=== PATIENT | female | born 1980 | race Caucasian/White ===

== ENCOUNTER → 2016-10-07 | Outpatient (CLI) | payer BC ==
[~2016-10-07] MED LIST: CALC500C3 PO; PRENTAB26 PO
--- NOTE | 2016-10-07 15:29 | MAMMOGRAPHY REPORT ---
BILATERAL DIGITAL DIAGNOSTIC MAMMOGRAM TOMOSYNTHESIS WITH CAD AND TARGETED LEFT ULTRASOUND: 7 CLINICAL HISTORY: 36-year-old woman who reports a lump in the 5:00 to 6:00 left breast that she noti rich one year ago but feels as though is it is increasing in size. No skin erythema, focal pain or n ipple discharge. Family history of breast cancer = great aunt in her 50s. TECHNIQUE: Bilateral breast tomosynthesis in addition to standard 2D mammography was performed. Curr ent study was also evaluated with a Computer Aided Detection (CAD) system. COMPARISON: No prior exams were available for comparison. BREAST COMPOSITION: The tissue of both breasts is heterogeneously dense, which may obscure small ma sses. FINDINGS: A triangle skin palpable marker overlies the 5:00 middle one third of the left breast, den oting the area of palpable lump pointed out by the patient. There are scattered bilateral benign-ap pearing punctate microcalcifications. No suspicious mass, architectural distortion or cluster of dow spicious microcalcifications is seen. Real-time high-resolution ultrasound was performed in the area of palpable lump pointed out by the p atient. On palpation, there is a discrete 7 mm soft mobile mass in the 6:00 left breast, 2 cm from the nipple. On ultrasound, there is dense glandular tissue without evidence of a discrete solid or cystic mass. Incidental note is made of an anechoic oval benign simple cyst in the 7:00 left breast , 1 cm from the nipple, measuring 2.8 x 1.6 x 3.8 mm. IMPRESSION: ACR BI-RADS CATEGORY 2: BENIGN, TARGETED ULTRASOUND ACR BI-RADS CATEGORY 2: BENIGN There is no mammographic or targeted sonographic evidence of malignancy. No suspicious mammographic or sonographic abnormality to correlate with the palpable lump pointed out by the patient in the 6: 00 left breast. Incidental note is made of a small benign simple cyst in the 7:00 left breast, near the palpable lump. Overall, clinical follow-up is recommended, as biopsy of a clinically suspiciou s mass should not be precluded by negative imaging. Otherwise, recommend annual screening mammograp hy, once age-appropriate. These results and recommendations were discussed with the patient at the time of the exam. Approximately 10% of breast cancers are not detected with mammography. A negative mammographic repor t should not delay biopsy if a clinically suggestive mass is present. Yaneth Prieto M.D. ay/:10/07/2016 10:54:08 Pail Tester: Dixie SMITH(Rhonda)(M), [facility] letter sent: Normal 1/2 BI-RADS Code: ACR BI-RADS Category 2: Benign Ultrasound BI-RADS: ACR BI-RADS Category 2: Benign
== END | disposition home or self-care (01) ==
LOC: C.MAMM 09:53
PROVIDERS: ATTEND Obstetrics & Gynecology
DX: N63 Unspecified lump in breast (principal); N60.02 Solitary cyst of left breast

== ENCOUNTER 2017-07-11 17:06 | Emergency (ER) | payer BC, OTHER ==
[~2017-07-11] VITALS: Ht 170.2 cm; Wt 55.9 kg
[2017-07-11 17:11] VITALS: BP 125/86; PULSE 76; TEMP 36.7; O2SAT 100; Ht 170.2 cm; Wt 55.9 kg
[2017-07-11] MEDS ORDERED: IBUPROFEN 600 MG TAB PO STA (17:49)
[2017-07-11] MEDS ORDERED: ACETAMINOPHEN 500 MG TAB PO STA (17:49)
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
== END 2017-07-11 20:20 | disposition home or self-care (01) ==
LOC: C.EDB 17:07 → C.EDD 20:20
DX: M54.6 Pain in thoracic spine (principal); V48.5XXA Car driver injured in noncollision transport accident in traffic accident, initial encounter; Y93.C2 Activity, hand held interactive electronic device; Y92.488 Other paved roadways as the place of occurrence of the external cause; Z87.891 Personal history of nicotine dependence